=== PATIENT | female | born 1990 | race Caucasian/White ===

== ENCOUNTER 2022-04-23 07:27 | Emergency (ER) | payer MEDICAID, OTHER ==
[~2022-04-23] VITALS: Ht 165.1 cm; Wt 80.0 kg
[2022-04-23 07:31] VITALS: BP 152/76
== END 2022-04-23 07:42 | disposition home or self-care (01) ==
LOC: ER 07:27
DX: Z00.00 Encounter for general adult medical examination without abnormal findings (principal)
CPT/HCPCS: 99283

== ENCOUNTER 2022-08-27 00:17 | Emergency (ER) | payer MEDICAID ==
[~2022-08-27] VITALS: Ht 162.6 cm; Wt 78.6 kg
[2022-08-27] MEDS ORDERED: IBUPROFEN 600MG TABLET PO STA (00:35)
[2022-08-27 01:24] VITALS: BP 167/86
[2022-08-27] MEDS ORDERED: NAPR-681 PO (02:31)
== END 2022-08-27 02:59 | disposition home or self-care (01) ==
LOC: ER 00:17
DX: S62.614A Displaced fracture of proximal phalanx of right ring finger, initial encounter for closed fracture (principal); Y04.8XXA Assault by other bodily force, initial encounter; Y93.89 Activity, other specified; Y92.89 Other specified places as the place of occurrence of the external cause
CPT/HCPCS: 29130; 73130; 99283